=== PATIENT | female | born 1995 | race Two or more races ===

== ENCOUNTER 2017-10-08 21:42 | Emergency (ER) | payer OTHER ==
[~2017-10-08] VITALS: Ht 160 cm; Wt 95.5 kg
[~2017-10-08 21:42] MED LIST: ALBU8.5H8 IH; AZIT250T6 PO; CETI1TAB7 PO; FLUT1DIS IH
[2017-10-08 21:45] VITALS: BP 119/81
--- NOTE | 2017-10-08 22:19 | PHYS DOC ---
General Chief Complaint: COUGH Stated Complaint: COLD,HEADACHE,PRESSURE 22 WKS Time Seen by MD: 21:54 Source: patient Exam Limitations: no limitations Problems: History of Present Illness Initial Comments Patient is a 22-year-old female 22 weeks gestation who comes to the ED complaining of cold symptoms. Patient states that she just flew in from [place] by way of a few days. In the [place]. 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 She is taking vitamins and has had no complications denies any contractions or vaginal discharge. She says that she was seen by a provided PA and diagnosed with allergic rhinitis/URI symptoms advised to take Zyrtec. She is concerned about taking Zyrtec and and has come to clarify. Patient states that she's had 2 days frontal and maxillary sinus pressure with yellow nasal discharge and scratchy throat, mildly productive cough with yellow sputum no fever chills or body aches. Patient has history of asthma she typically uses an albuterol inhaler but states that she "heard" the albuterol is bad for the baby. On arrival her vital signs are stable she is in no apparent distress. Timing/Duration: yesterday Severity: moderate Location: nose, throat, facial Prearrival Treatment: over the counter meds Modifying Factors: worse with coughing, improves with other Associated Symptoms: cough, facial pain/swelling, malaise, nasal congestion/ drainage, sinus infection Allergies: Uncoded Allergies: PENICILLIN (Allergy, Intermediate, rash, 03/12/14) SHELLFISH (Allergy, Intermediate, sob, 03/12/14) Past Medical History Medical History: other (asthma, GERD) Surgical History: noncontributory LMP (Females 10-50): Family History Significant Family History: no pertinent family hx Social History Smoker: non-smoker Alcohol: none Drugs: none Constitutional: denies chills, denies diaphoresis, denies fever, denies malaise Eyes: denies blindness, denies blurred vision, denies drainage Ears: see HPI Nose: see HPI Mouth: see HPI Throat: see HPI Respiratory: see HPI, denies shortness of breath, denies wheezing Cardiovascular: denies chest pain, denies palpitations, denies syncope Gastrointestinal: denies abdominal pain, denies nausea, denies vomiting Neurological: see HPI, denies numbness, denies paresthesia Physical Exam General Appearance: WD/WN, no apparent distress Eyes: bilateral eye normal inspection, bilateral eye PERRL, bilateral eye EOMI Ears: bilateral ear auricle normal, bilateral ear canal normal, bilateral ear TM normal Nose: active bleeding, sinus tenderness, other (in terms inflamed yellow and clear nasal discharge) Mouth/Throat: normal mouth inspection, pharynx normal Neck: non-tender, supple Cardiovascular/Respiratory: normal peripheral pulses, normal breath sounds, no respiratory distress Neurologic/Psychiatric: vp cardiovascular service line II-XII nml as tested, no motor/sensory deficits, alert, normal mood/affect, oriented x 3 Skin: normal color, warm/dry Orders, Labs, Meds I reassured the patient that it was okay to take cetirizine and albuterol. I discussed medications and , due to lack of physician availability, status and history of asthma, Z-Augie prescription is given to the patient. I advised her to give her symptoms a few days and if no improvement to go ahead and fill the prescription but to try to hold off. Signs and symptoms to monitor as well as indications for urgent return to the department were discussed and the patient expressed agreement and understanding with the treatment plan. Departure Time of Disposition: 22:17 Disposition: 01 HOME, SELF-CARE Diagnosis: sinusitis, incidental Condition: GOOD Patient Instructions: Medicines During Additional Instructions: Please review the patient education materials given by ED staff regarding medications approved for . [id number] cetirizine for daytime symptoms, diphenhydramine for nighttime symptoms associated with allergies. Aggressive hydration with Gatorade or water. Use your albuterol inhaler as needed. Prescription: Zithromax take as directed Follow-up with your doctor in 7-10 days for recheck. Follow-up with your order detailer as directed. Return to ED with new or changing symptoms. JAVY SAM DO Oct 08, 2017 22:19
[2017-10-08] MEDS ORDERED: AZIT250T PO (23:02)
== END 2017-10-08 23:05 | disposition home or self-care (01) ==
LOC: ER 21:42
DX: O99.512 Diseases of the respiratory system complicating pregnancy, second trimester (principal); J32.9 Chronic sinusitis, unspecified; O99.612 Diseases of the digestive system complicating pregnancy, second trimester; J45.909 Unspecified asthma, uncomplicated; K21.9 Gastro-esophageal reflux disease without esophagitis; Z3A.22 22 weeks gestation of pregnancy; Z88.0 Allergy status to penicillin; Z91.013 Allergy to seafood
CPT/HCPCS: 99283

== ENCOUNTER 2017-10-26 22:22 | Emergency (ER) | payer OTHER ==
[~2017-10-26] VITALS: Ht 160 cm; Wt 96.7 kg
[~2017-10-26 22:22] MED LIST changes: +AZIT250T PO
[2017-10-26] MEDS ORDERED: IV NORMAL SALINE 1,000ML 1,000 ML IV ONE (23:00)
--- NOTE | 2017-10-26 23:16 | PHYS DOC ---
Past History Past Medical History: Asthma, GERD Past Surgical History: No Surgical History, Other Smoking: Non-smoker Alcohol Use: None Drug Use: None Adult General Chief Complaint Chief Complaint: ABDOMINAL PAIN IN HPI HPI Patient is a 22 year old female who presents with abdominal pain in . Patient states she is , 25 weeks . Today reports onset of cramping lower abdominal pain & back pain about 1-2 hours prior to arrival. At times as frequent as q8 minutes. She reports faint pink spotting when wiping after urinating. Denies large volume loss of fluid. She denies fevers/chills, nausea , vomiting, diarrhea, dysuria, vaginal discharge. She has been receiving care in the [place], visiting family for the holidays here, last OB appointment was 3 weeks ago. Denies any complications with thus far. Review of Systems Review of Systems Constitutional: Denies fever or chills HENT: Denies nasal congestion or sore throat Respiratory: Denies cough or shortness of breath Cardiovascular: Denies chest pain or edema GI: Reports abdominal pain, denies nausea, vomiting, bloody stools or diarrhea : Denies dysuria, reports vaginal spotting. Musculoskeletal: Reports back pain, denies joint pain Integument: Denies rash or skin lesions Neurologic: Denies headache All other systems were reviewed and found to be within normal limits, except as documented in this note. Current Medications Current Medications Current Medications Medications (Trade) Dose Ordered Sig/Joselito Start Time Stop Time Status Last Admin Dose Admin Sodium Chloride 1,000 ml @ 1,000 mls/hr 1X ONCE 10/26/17 23:00 10/26/17 23:59 Allergies Allergies Allergies Uncoded Allergies Type Severity Reaction Last Updated Verified PENICILLIN Allergy Intermediate rash 03/12/14 SHELLFISH Allergy Intermediate sob 03/12/14 Physical Exam Physical Exam Constitutional: obese, no acute distress, non-toxic appearance. HENT: Normocephalic, atraumatic, bilateral external ears normal, oropharynx moist, nose normal. Eyes: conjunctiva normal, no discharge. Neck: supple, no stridor. Cardiovascular: RRR, no murmurs, no edema. Lungs & Thorax: LCTAB, no wheezing, no respiratory distress. Abdomen: gravid uterus. soft, nontender, nondistended. : normal appearing female external genitalia, sterile bimanual exam only demonstrates closed os, no blood on the glove, speculum exam deferred. Skin: Warm, dry, no erythema, no rash. Back: No CVA tenderness. Extremities: No tenderness, no edema. Neurologic: Alert and oriented X 3, no focal deficits noted. Psychologic: Affect normal, judgement normal, mood normal. EKG EKG [] Radiology/Procedures Radiology/Procedures [] Course & Med Decision Making Course & Med Decision Making Pertinent Labs and Imaging studies reviewed. (See chart for details) The patient presents with abdominal pain in . She had cramping pain at home which has essentially resolved here, only having occasional/infrequent cramps at this time. Cervix is closed. heart tones 160 by RN. Recommend transfer for urgent OB evaluation as no OB coverage at this facility. Contacted [facility], recommend [facility] as the patient is . Discussed with Dr. Sibley at [facility] who agrees to accept transfer. Patient is being transferred by EMS in stable condition, not in active labor. [] Dragon Disclaimer Dragon Disclaimer This electronic medical record was generated, in whole or in part, using a voice recognition dictation system. Departure Departure: Impression: Primary Impression: Abdominal pain affecting Disposition: XFER OTHER Condition: STABLE RIKI TILLMAN MD Oct 26, 2017 23:16
[2017-10-26 23:21] VITALS: BP 119/80
[2017-10-26 23:29] LABS: BASO % 0 % (0-3); EOS # 0.2 x10^3/uL (0.0-0.7); EOS % 1 % (0-3); HEMATOCRIT 34.3 % (36.0-47.0); HEMOGLOBIN 11.7 g/dL (12.0-15.5); LYMPH # 2.3 x10^3/uL (1.0-4.8); LYMPH % 16 % (24-48); MEAN CORPUSCULAR HEMOGLOBIN 28 pg (25-35); MEAN CORPUSCULAR HGB CONC 34 g/dL (31-37); MEAN CORPUSCULAR VOLUME 81 fL (79-100); MONO # 0.9 x10^3/uL (0.0-1.1); MONO % 7 % (0-9); NEUT % 76 % (31-73); PLATELET COUNT 304 x10^3/uL (140-400); RED BLOOD COUNT 4.21 x10^6/uL (3.50-5.40); RED CELL DISTRIBUTION WIDTH 14.4 % (11.5-14.5); WHITE BLOOD COUNT 14.4 x10^3/uL (4.0-11.0)
[2017-10-26 23:40] LABS: ALBUMIN 2.8 g/dL (3.4-5.0); ALBUMIN/GLOBULIN RATIO 0.6 (1.0-1.7); CALCIUM 9.2 mg/dL (8.5-10.1); CREATININE 0.6 mg/dL (0.6-1.0); GFR 122.8; POTASSIUM 3.6 mmol/L (3.5-5.1); TOTAL BILIRUBIN 0.1 mg/dL (0.2-1.0); TOTAL PROTEIN 7.4 g/dL (6.4-8.2)
[2017-10-26 23:53] LABS: BILIRUBIN,URINE NEG (NEG); CLARITY,URINE CLEAR; COLOR,URINE YELLOW; GLUCOSE,URINE NEG (NEG); NITRITE,URINE NEG (NEG); UROBILINOGEN,URINE 0.2 mg/dL (0.2 mg/dL)
[2017-10-26 23:54] LABS: BACTERIA,URINE FEW /HPF (0-FEW); RBC,URINE 0 /HPF (0-2); SQUAMOUS EPITHELIAL CELL,UR FEW /LPF; WBC,URINE OCC /HPF (0-4)
== END 2017-10-26 23:52 | disposition short-term general hospital (02) ==
LOC: ER 22:22
DX: O26.892 Other specified pregnancy related conditions, second trimester (principal); R10.30 Lower abdominal pain, unspecified; M54.5 Low back pain; O99.512 Diseases of the respiratory system complicating pregnancy, second trimester; O99.612 Diseases of the digestive system complicating pregnancy, second trimester; K21.9 Gastro-esophageal reflux disease without esophagitis; J45.909 Unspecified asthma, uncomplicated; Z3A.25 25 weeks gestation of pregnancy; Z88.0 Allergy status to penicillin; Z91.013 Allergy to seafood
CPT/HCPCS: 36415; 80053; 81001; 85025; 86850; 86900; 86901; 87086; 87186; 96360; 99285-25; J7030